=== PATIENT | female | born 1955 | race Caucasian/White ===

== ENCOUNTER 2019-02-27 07:57 | Emergency (ER) | payer OTHER, SELFPAY ==
[2019-02-27 07:59] VITALS: BP 138/79; PULSE 67; RESP 16; TEMP 36.7; O2SAT 99; BMI 30.4
--- NOTE | 2019-02-27 08:18 | EKG12_ITS ---
Test Reason : Blood Pressure : / mmHG Vent. Rate : 062 BPM Atrial Rate : 082 BPM P-R Int : 214 ms QRS Dur : 094 ms QT Int : 418 ms P-R-T Axes : 039 -37 -16 degrees QTc Int : 424 ms Sinus rhythm with 1st degree A-V block with Blocked Premature atrial complexes Left axis deviation Low voltage QRS Nonspecific T wave abnormality Abnormal ECG Old IWMI Confirmed by BENSON LARA ([id number]), acquisitions editor SARIKA ROE ([id number] on 03/03/2019 4:58:40 PM Referred By: MIKAYLA Confirmed By:BENSON LARA
--- NOTE | 2019-02-27 08:18 | CT_ITS ---
STUDY: CT BRAIN WITHOUT CONTRAST REASON FOR EXAM: Female, 63 years old. Confusion. RADIATION DOSAGE (If Supplied By Facility): CTDIvol = ( 60.81 ) mGy, DLP = ( 1044.28 ) mGycm TECHNIQUE: Transaxial CT imaging of the brain was performed without administration of intravenous contrast material. Individualized dose optimization techniques were used for this CT. COMPARISON: Comparison is made with prior study dated May 14, 2017. FINDINGS: Normal soft tissue structures. Normal calvarium. Normal size ventricles and extra-axial spaces for the patient's age. Normal white matter tracts of the cerebral hemispheres. Normal basal ganglia and thalami. Normal brainstem. Normal cerebellum. There is no intracranial hemorrhage. There are no findings of an acute ischemic infarction. Normal visualized paranasal sinuses. CT/Brain/Head without Contrast IMPRESSION: Normal unenhanced CT scan of the brain. Electronically Signed: Tyson Garcias, at 9:13 EDT , Service support ,
--- NOTE | 2019-02-27 08:24 | ED.DCSUM_ITS ---
- ER Visit Summary Date of Service: 02/27/19 Chief Complaint: Confusion History of Present Illness: The patient is a 63 F who presents with an episode of some confusion at work today. Patient states she had difficulty figuring out how to use 1 of the machines at work today. 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 Patient states her coworkers became concerned and called EMS. Patient denies any chest pain or palpitations. Patient denies any headaches. Patient denies any paresthesias or weakness. Physical Examination: Vital signs are stable. Patient is afebrile. Patient is in no acute distress. Oral mucosa is pink and moist. Neck is supple. Trachea is midline. There is no JVD noted. Heart was regular rate and rhythm. Lungs are clear and equal bilateral. Abdomen is soft. Bowel sounds are normal. There is no tenderness. There is no guarding noted. Skin is warm dry. Cranial nerves II through XII are intact. There are no focal motor or sensory deficits noted. The remaining physical exam is within normal limits. Test Results: EKG showed sinus rhythm with a rate of 62 with occasional PACs. There are no acute ST or T wave changes. This was unchanged compared to previous EKG dated 07/15/2015. CT scan of the brain was obtained. There is no acute intracranial abnormality noted. CBC was essentially within normal limits. Basic metabolic profile shows sodium of 130 and a chloride of 97. Urinalysis was normal. Troponin was normal. Emergency Department Course and Treatment: Patient was given IV fluids here. Patient felt better on reevaluation. Patient was instructed to get plenty of rest. Patient was instructed to follow-up with her primary care physician in 5- 7 days. Patient and her spouse understood and were agreeable with the plan. All questions were answered. Disposition: Discharge home Impression: Confusion episode This note was generated with QA on Request dictation software. It may contain incorrect words, spelling, and punctuation that were not noted in review of the chart prior to signing ED Disposition - Plan for ED Patient: Disposition: Home or Assisted Living Diagnosis: Episode of confusion Instructions: ED Confusion Referrals: Yohannes Del Cid MD [NON-STAFF] - 5-7 Days
[2019-02-27 08:39] LABS: Absolute Lymphocyte Count 2.02 X10^3/ul (0.83-4.51); Absolute Neutrophil Count 1.3 X10^3/uL (2.0-7.7); Basophil# 0.03 X10^3/uL; Basophil% 0.7 % (0-1); Eosinophil# 0.18 X10^3/uL; Eosinophils% 4.4 % (0-5); Hematocrit 36.9 % (37-47); Hemoglobin 12.7 g/dl (12.0-15.0); Lymphocyte # 2.02 X10^3/ul (4.0); Lymphocyte % 49.8 % (19-41); Mean Corp Hgb Conc 34.4 g/gl (32-36); Mean Corpuscular Hgb 29.7 pg (27.0-32.0); Mean Corpuscular Volume 86.4 fL (81-99); Mean Platelet Vol. 9.4 fl (6.2-12.0); Monocyte# 0.49 X10^3/uL; Monocyte% 12.1 % (0-10); Neutrophil # 1.33 X10^3/uL (2.7-7.7); Neutrophil % 32.8 % (47-70); Platelet Count 244 K/mm3 (150-450); RBC Distribution Width SD 41.2 fl (35.1-43.9); Red Blood Count 4.27 M/mm3 (4.2-5.4); White Blood Count 4.1 K/mm3 (4.4-11.0)
[2019-02-27 08:45] LABS: POSITIVE COUNT NO; POSITIVE DIFFERENTIAL NO; POSITIVE MORPHOLOGY NO
[2019-02-27 08:56] LABS: AST(SGOT) 26 U/L (15-37); Alanine Aminotransfer ALT/SGPT 28 U/L (13-56); Albumin, Serum 3.3 g/dL (3.2-5.0); Alkaline Phosphatase 145 U/L (45-117); Anion Gap 6 (5-15); BUN 10 mg/dL (7-18); BUN/Creat Ratio 10.4 RATIO (10-20); Calcium,Total 8.5 mg/dL (8.5-10.1); Chloride 97 mmol/L (98-107); Creatinine, Serum 0.96 mg/dL (0.55-1.02); EST Glomerular Filtration Rate 62 mL/min (>60); Est Glom Filt Rate - Afr Amer 75 mL/min (>60); Estimated Creatinine Clearance 48.33 ml/min; Globulin 3.3 g/dL (2.2-4.2); Glucose 103 mg/dL (74-106); Potassium 3.7 mmol/L (3.5-5.1); Protein, Total 6.6 g/dL (6.4-8.2); Sodium Level 130 mmol/L (136-145)
[2019-02-27 09:07] VITALS: BP 104/87; PULSE 72; RESP 19; O2SAT 99
[2019-02-27] MEDS: 0.9% Normal Saline 1,000 ML 1000 ML IV (09:52)
[2019-02-27 10:03] LABS: Bacteria 0 SEEN /hpf (None Seen); Mucous, Urine 0 SEEN /hpf (<or=2+); Red Blood Cells-Urine 0 SEEN /hpf (0-5); White Blood Cells 0 SEEN /hpf (0-5)
[2019-02-27 10:05] LABS: Color, Urine Yellow (Yellow); Glucose, Dipstick Normal (Normal); Ketone-Dipstick Negative (Negative); Leukocyte Esterase-Dipstick Negative /ul (Negative); Nitrite-Dipstick Negative (Negative); Occult Blood-Urine Negative /ul (Negative); Protein-Dipstick Negative (Negative); Urine Bilirubin Dipstick Negative (Negative); Urine Clarity Clear (Clear); Urine Urobilinogen Normal (Normal)
[2019-02-27 10:12] LABS: Squamous Epithelial Cells - UA 0-5 SEEN /hpf (5-10)
[2019-02-27 10:37] VITALS: BP 137/85; PULSE 62; RESP 15; O2SAT 97
== END 2019-02-27 10:37 | disposition home or self-care (01) ==
PROVIDERS: Emergency Provider Emergency Medicine; Family Provider Family Medicine; PCP Family Medicine
DX: R41.0 Disorientation, unspecified (principal); M54.2 Cervicalgia; M54.9 Dorsalgia, unspecified; E78.00 Pure hypercholesterolemia, unspecified; K21.9 Gastro-esophageal reflux disease without esophagitis; E03.9 Hypothyroidism, unspecified
CPT/HCPCS: 70450; 80053; 81001; 84484; 85025; 93005; 96360; 99285; J7030; A4216

== ENCOUNTER 2021-10-20 14:33 | Emergency (ER) | payer OTHER, SELFPAY ==
[2021-10-20 14:34] VITALS: BP 141/96; PULSE 64; RESP 16; TEMP 36.4; O2SAT 97; BMI 35.5
--- NOTE | 2021-10-20 16:56 | US_ITS ---
STUDY: VENOUS DOPPLER ULTRASOUND - LEFT LOWER EXTREMITY REASON FOR EXAM: Female, 65 years old. LEG PAIN AND SWELLING LEFT LATERAL CALF PAIN- X 2 WEEKS TECHNIQUE: Ultrasound evaluation of the deep vein system to include mcintyre-scale imaging and compression was performed. Mcintyre-scale imaging and Doppler sonographic evaluation, including duplex spectral analysis and qualitative color flow sonography, was performed. COMPARISON: None. FINDINGS: Common Femoral Vein: Normal compression, spontaneity and augmentation. Normal color Doppler. Common Femoral Vein/Greater Saphenous Junction: Normal compression, spontaneity and augmentation. Normal color Doppler. Superficial Femoral Proximal: Normal compression, spontaneity and augmentation. Normal color Doppler. Superficial Femoral Middle: Normal compression, spontaneity and augmentation. Normal color Doppler. Superficial Femoral Distal: Normal compression, spontaneity and augmentation. Normal color Doppler. Popliteal Vein: Normal compression, spontaneity and augmentation. Normal color Doppler. Posterior Tibial Vein: Normal compression, spontaneity and augmentation. Normal color Doppler. Peroneal Vein: Normal compression, spontaneity and augmentation. Normal color Doppler. There is no demonstrated deep venous thrombosis. US/Venous Duplex Imag/Limited/Uni IMPRESSION: There is no demonstrated deep venous thrombosis. Please see technologist report in PACS for further details for their impression/ worksheet/ details/ etc. Electronically Signed: Kaushik Robbins MD at 17:41 EST , Service support ,
--- NOTE | 2021-10-20 18:36 | ED.VIS.LOWEX ---
HPI History of Present Illness HPI Narrative: Patient presents with left lower leg pain that has been getting worse over the past 2 weeks. Patient states her pain has gradually gotten worse. Patient denies any trauma or injury. Patient describes her pain as burning. Patient states she went to an urgent care today and was referred to the emergency department for possible DVT. Patient states her pain is worse with any ambulation and better with rest. Patient does admit to some tingling in her left leg. Patient denies any weakness. Chief Complaint: Lower Extremity Injury Informant: patient Onset/Context/Timing Onset: Weeks (2) Timing: Continuous Quality of Pain: Burning Worsened by: Ambulation Relieved by: Rest Associated Symptoms Associated Symptoms: Positive for Parasthesia; Negative for Weakness and Loss of Funtion PFSH PFS Medical History (Updated 10/20/21 @ 18:[address] Parish Jensen DO) Harper's disease Hypothyroidism Home Medications tramadol 50 mg PO Q6H PRN PRN 06/24/15 [History Last Taken 07/14/15] ergocalciferol (vitamin D2) [Vitamin D2] 50,000 unit PO Q7D 07/15/15 [History Last Taken 07/11/15] levothyroxine 75 mcg PO DAILY 07/15/15 [History Last Taken 07/15/15] zolpidem [Ambien] 10 mg PO QHS PRN PRN #1 07/16/15 [Rx Last Taken Unknown] amitriptyline 50 mg PO DAILY 05/14/17 [History Last Taken Unknown] hydrocortisone 5 mg PO 4X/DAY 02/27/19 [History Last Taken Unknown] Allergy/AdvReac Type Severity Reaction Status Date / Time Penicillins AdvReac Mild Other Verified 10/20/21 14:36 Surgical History (Updated 10/20/21 @ 18:[address] Parish Jensen DO) History of carpal tunnel surgery History of hysterectomy Hx of appendectomy Hx of section Hx of cholecystectomy Social History Smoking Status: Never smoker ROS ROS ED Constitutional Constitutional ED: Denies chills or fever(s) Eyes Eyes: Denies blurry vision or change in vision ENT ENT ED: Denies rhinorrhea or sore throat Cardiovascular Cardiovascular: Denies chest pain or palpitations Respiratory/Chest Respiratory/Chest: Denies cough or dyspnea Gastrointestinal Gastrointestinal: Denies nausea or vomiting Genitourinary Genitourinary ED: Denies dysuria or hematuria Musculoskeletal Musculoskeletal: Denies back pain or neck pain Integumentary Denies abscess or rash Neurologic Neurologic: Denies headache(s) or weakness Hematologic/Lymphatic Hematologic/Lymphatic: Reports easy bruising Allergic/Immunologic Allergic/Immunologic ED: Denies mouth swelling or urticaria EXAM Physical Exam Const Vital Signs: 10/20/21 14:34 Temperature 97.5 F L Temperature Source Temporal Pulse Rate 64 Respiratory Rate 16 Blood Pressure 141/96 H Blood Pressure Mean 111 Pulse Ox 97 Oxygen Delivery Method Room Air Positive well nourished, well developed and obese General Appearance ED: well developed Nutritional Appearance: obese HEENT Reports moist mucous membranes normocephalic Extremity Extremity Narrative: There is tenderness over the lateral aspect of the left lower leg. There is mild calf tenderness. There is no bony crepitance or step-off. There is no edema or ecchymosis. There is good range of motion. There is mild pain with dorsiflexion of the left ankle. Pedal pulses are equal bilaterally. Sensation was intact to light touch in all digits. Capillary refill was less than 2 seconds in all digits. Neuro oriented x3, CN's II-XII intact bilaterally, moves all extremities and no sensory deficits noted Sensorium / Orientation: alert Motor Exam: strength 5/5 throughout Psych mental status grossly normal MDM MDM MDM Narrative Medical decision making narrative: Venous duplex of the left lower extremity was obtained. There is no DVT noted. This was interpreted by the radiologist and reviewed by myself. Patient was advised of her findings. Patient was instructed to ice and elevate the left leg. Patient was instructed to take Tylenol or ibuprofen as needed for pain. Patient understood and was agreeable with the plan. All questions were answered. Radiography Diagnostic Testing: Clinical Impression(s) from Imaging Studies Venous Duplex 10/20/21 16:56 IMPRESSION: There is no demonstrated deep venous thrombosis. Please see technologist report in PACS for further details for their impression/ worksheet/ details/ etc. Electronically Signed: Kaushik Robbins MD at 17:41 EST , Service support , Discharge Plan Triage Chief Complaint: Lower Extremity Injury ED Provider: Parish Jensen Dx/Rx/DC Orders Clinical Impression: Strain of left calf muscle Instructions: ED Muscle Strain, Extremity Prescriptions: No Action tramadol 50 MG tablet 50 mg PO Q6H PRN PRN (Reason: Pain) RF: 0 levothyroxine 75 MCG tablet 75 mcg PO DAILY RF: 0 ergocalciferol (vitamin D2) [Vitamin D2] 50,000 UNIT capsule 50,000 unit PO Q7D RF: 0 zolpidem [Ambien] 10 MG tablet 10 mg PO QHS PRN PRN (Reason: Sleep) Qty: 1 RF: 0 amitriptyline 50 MG tablet 50 mg PO DAILY RF: 0 hydrocortisone 5 MG tablet 5 mg PO 4X/DAY RF: 0 Primary Care Provider: Samy Bo Referrals: Samy Bo MD [Primary Care Provider] - 3-5 Days Disposition Disposition: Home, Self Care
== END 2021-10-20 18:46 | disposition home or self-care (01) ==
PROVIDERS: Emergency Provider Emergency Medicine; PCP Family Medicine
DX: S86.912A Strain of unspecified muscle(s) and tendon(s) at lower leg level, left leg, initial encounter (principal); X58.XXXA Exposure to other specified factors, initial encounter; Y93.9 Activity, unspecified; Y92.9 Unspecified place or not applicable; E66.9 Obesity, unspecified; Z68.35 Body mass index [BMI] 35.0-35.9, adult; E27.1 Primary adrenocortical insufficiency; E03.9 Hypothyroidism, unspecified; Z79.899 Other long term (current) drug therapy
CPT/HCPCS: 93971; 99282

== ENCOUNTER 2022-01-04 11:29 | Emergency (ER) | payer OTHER, SELFPAY ==
[2022-01-04 11:30] VITALS: BP 123/78; PULSE 76; RESP 18; TEMP 36.4; O2SAT 98; BMI 34.7
--- NOTE | 2022-01-04 12:25 | RAD_ITS ---
STUDY: X-RAY - RIGHT HAND REASON FOR EXAM: Female, 66 years old. Cat bite. TECHNIQUE: 3 view(s) of the hand. COMPARISON: None. FINDINGS: Normal radiocarpal articulation. Normal distal radioulnar joint. Normal visualized carpal bones. Normal carpal articulations Normal carpometacarpal articulation of the thumb. Normal second through fifth carpometacarpal joints. Normal metacarpi. Normal metacarpophalangeal joint of the thumb. Normal interphalangeal joint of the thumb. Normal proximal and distal phalanges of the thumb. Normal metacarpophalangeal joints of the second through fifth fingers. Normal proximal and distal interphalangeal joints of the second through fifth fingers. Normal phalanges of the second through fifth fingers. Soft tissue swelling. No radiopaque foreign body is seen. RAD/Hand Min 3 Views IMPRESSION: Soft tissue swelling. No radiopaque foreign body is seen. Electronically Signed: Tyson Garcias MD at 12:38 EST ,
[2022-01-04 12:34] LABS: Erythrocyte Sedimentation Rate 48 mm/hr (0-30)
[2022-01-04 12:37] LABS: Absolute Lymphocyte Count 2.97 X10^3/uL (0.83-4.51); Absolute Neutrophil Count 5.2 X10^3/uL (2.0-7.7); Basophil# 0.09 X10^3/uL; Eosinophil# 0.31 X10^3/uL; Eosinophils% 3.3 % (0-5); Hematocrit 38.3 % (37-47); Lymphocyte # 2.97 X10^3/ul (0.83-4.51); Lymphocyte % 31.6 % (19-41); Mean Corp Hgb Conc 33.9 g/dL (32-36); Mean Corpuscular Volume 91.4 fL (81-99); Mean Platelet Vol. 10.1 fl (6.2-12.0); Monocyte# 0.71 X10^3/uL; Monocyte% 7.6 % (0-10); NRBC Flagged by Analyzer 0 % (0-5); Neutrophil # 5.17 X10^3/uL (2.7-7.7); Platelet Count 332 K/mm3 (150-450); RBC Distribution Width CV 13.9 % (11.6-14.6); RBC Distribution Width SD 46.5 fl (35.1-43.9); Red Blood Count 4.19 M/mm3 (4.2-5.4); White Blood Count 9.4 K/mm3 (4.4-11.0)
[2022-01-04 12:42] LABS: ALB/GLOB Ratio 0.9 RATIO (0.9-2.4); AST(SGOT) 24 U/L (15-37); Alanine Aminotransfer ALT/SGPT 31 U/L (13-56); Albumin, Serum 3.5 g/dL (3.2-5.0); Alkaline Phosphatase 106 U/L (45-117); Anion Gap 6 (5-15); BUN 11 mg/dL (7-18); Calcium,Total 8.6 mg/dL (8.5-10.1); Chloride 103 mmol/L (98-107); EST Glomerular Filtration Rate 59 mL/min (>60); Est Glom Filt Rate - Afr Amer 71 mL/min (>60); Estimated Creatinine Clearance 42.59 ml/min; Globulin 3.9 g/dL (2.2-4.2); Glucose 85 mg/dL (74-106); Potassium 3.7 mmol/L (3.5-5.1); Protein, Total 7.4 g/dL (6.4-8.2); Sodium Level 136 mmol/L (136-145)
[2022-01-04 13:58] VITALS: BP 148/85; PULSE 53; RESP 18; TEMP 36.2; O2SAT 98
--- NOTE | 2022-01-04 14:49 | EDS_ITS ---
HPI History of Present Illness Chief Complaint: Bite Informant: patient Narrative Narrative: Presents for evaluation of cat bite cellulitis right upper extremity. Initial cat bite 2 days ago her home cat. Patient's immunizations up-to-date. Tetanus shot was performed couple weeks ago for a cat bite on the left hand. She states saw her PCP started on Augmentin, overnight redness around the site. There is no streaking. No fevers. She is not a diabetic. No immunosuppressant history. Reports had a cat bite to the left hand 10 days ago, she had fever and confusion and she was admitted to [facility] for 2 days, she had incision and drainage and drain tube placed to the left hand that has been removed, and healing. She finished her initial antibiotics Sunday before restarting on Sunday due to new bite. There is no fevers. Prior similar symptoms: Yes PFSH PFSH Medical History Troy's disease Detached retina, right Hypothyroidism Home Medications tramadol 50 mg PO Q6H PRN PRN 06/24/15 [History Last Taken 07/14/15] ergocalciferol (vitamin D2) [Vitamin D2] 50,000 unit PO Q7D 07/15/15 [History Last Taken 07/11/15] levothyroxine 75 mcg PO DAILY 07/15/15 [History Last Taken 07/15/15] zolpidem [Ambien] 10 mg PO QHS PRN PRN #1 07/16/15 [Rx Last Taken Unknown] amitriptyline 50 mg PO DAILY 05/14/17 [History Last Taken Unknown] hydrocortisone 5 mg PO 4X/DAY 02/27/19 [History Last Taken Unknown] Allergy/AdvReac Type Severity Reaction Status Date / Time Penicillins AdvReac Mild Other Verified 01/04/22 11:32 Surgical History History of carpal tunnel surgery History of hysterectomy Hx of appendectomy Hx of section Hx of cholecystectomy Social History Smoking Status: Never smoker ROS ROS ED Constitutional Constitutional ED: Denies chills, fever(s) or sweats Eyes Eyes: Denies change in vision ENT ENT ED: Denies dysphagia or sore throat Cardiovascular Cardiovascular: Denies chest pain, leg edema, palpitations or racing heartbeat Respiratory/Chest Respiratory/Chest: Denies cough, dyspnea or dyspnea on exertion Gastrointestinal Gastrointestinal: Denies abdominal pain, diarrhea, nausea or vomiting Genitourinary Genitourinary ED: Denies dysuria, hematuria or urinary frequency Musculoskeletal Musculoskeletal: Denies back pain, extremity pain or neck pain Integumentary Reports other Details: Cat bite right hand forearm ; Denies rash or wounds Neurologic Neurologic: Denies headache(s), paresthesias or weakness EXAM Physical Exam Const Vital Signs: 01/04/22 11:30 01/04/22 13:58 Temperature 97.6 F L 97.2 F L Temperature Source Temporal Temporal Pulse Rate 76 53 L Respiratory Rate 18 18 Blood Pressure 123/78 H 148/85 H Blood Pressure Mean 93 106 Pulse Ox 98 98 Oxygen Delivery Method Room Air Room Air Positive well nourished and well developed General Appearance ED: well developed and NAD HEENT Reports moist mucous membranes normocephalic and atraumatic Eyes PERRL, EOMs intact bilaterally and conjunctivae normal General Eye ED: Yes normal appearance of both eyes Neck no lymphadenopathy and supple General: Negative for tenderness Chest Wall Chest: Negative for tenderness Resp normal respiratory effort and normal air movement Effort and Inspection: symmetric chest movement; Negative for respiratory distress Cardio regular rate, regular rhythm and no murmurs Peripheral Pulses: pulses 2+ throughout GI normal to inspection, nondistended, normoactive bowel sounds and non-tender Palpation: Negative for guarding or rebound tenderness present Back/Spine no CVA tenderness and no thoracic nor lumbar tenderness Extremity normal to inspection General Extremety ED: Negative for edema or tenderness General Extremity: Negative for edema Neuro oriented x3 and no sensory deficits noted Sensorium / Orientation: awake and alert Skin no rashes or lesions noted and no wounds Skin Narrative: Right upper extremity: Hand noted multiple punctures dorsal aspect there is erythematous patch on the dorsal aspect hand mild swelling there is no crepitus. Also punctures noted on the dorsal mid forearm with minimal erythema around the sites. There is no drainage no induration. No streaking up the arm there is no axillary lymphadenopathy. Areas are nontender to palpation. MDM MDM MDM Narrative Medical decision making narrative: Patient nontoxic vital signs stable afebrile. A&O x3. The erythema was outlined by myself with a marking pen. I did check labs white count normal at 9.4. ESR 48 CRP 16. She was given a dose of Unasyn. X-ray right hand reviewed by myself and read by radiology soft tissue swelling with no soft tissue gas. On reevaluation erythema was slightly improving from the markings. At this time discussed with the patient safe for outpatient treatment will finish her antibiotics and follow-up with her PCP. Discussed return precautions. All questions were answered. Patient is being discharged under pandemic conditions under declared global, national and state disaster activation, with limited medical resources. Patient and community understands this. Results discussed in layman's terms to the patient satisfaction. All questions answered in layman's terms. Patient understands importance of follow-up care as directed. Patient has been instructed to return to the ED immediately if new symptoms, problems, or questions occur. We mutually agree with the plan of disposition. The patient understand that they may call or return with any questions or concerns at any time. Lab Data Attestation: I reviewed the patient's lab results. Labs: Laboratory Results - last 24 hr 01/04/22 01/04/22 12:15 12:15 WBC 9.4 RBC 4.19 L Hgb 13.0 Hct 38.3 MCV 91.4 MCH 31.0 MCHC 33.9 RDW Std Deviation 46.5 H RDW Coeff of Amina 13.9 Plt Count 332 MPV 10.1 Immature Gran % (Auto) 1.500 H Neut % (Auto) 55.0 Lymph % (Auto) 31.6 [place] % (Auto) 7.6 Eos % (Auto) 3.3 Baso % (Auto) 1.0 Absolute Neuts (auto) 5.2 Absolute Lymphs (auto) 2.97 Nucleated RBC % 0 ESR 48 H Sodium 136 Potassium 3.7 Chloride 103 Carbon Dioxide 27.0 Anion Gap 6 BUN 11 Creatinine 1.00 Estim Creat Clear Calc 42.59 Est GFR (MDRD) Af Amer 71 Est GFR (MDRD) Non-Af 59 L BUN/Creatinine Ratio 11.0 Glucose 85 Calcium 8.6 Total Bilirubin 0.20 AST 24 ALT 31 Alkaline Phosphatase 106 C-React Prot Ext Range 16.10 H Total Protein 7.4 Albumin 3.5 Globulin 3.9 Albumin/Globulin Ratio 0.9 Radiography Chest X-Ray - ED: Read by ED Physician and Read by Radiologist Diagnostic Testing: Clinical Impression(s) from Imaging Studies Hand X-Ray 01/04/22 12:25 IMPRESSION: Soft tissue swelling. No radiopaque foreign body is seen. Electronically Signed: Tyson Garcias MD at 12:38 EST , Discharge Plan Triage Chief Complaint: Bite ED Provider: Garett Beach Dx/Rx/DC Orders Clinical Impression: Cellulitis of hand, right, Cat bite of multiple sites of right hand and wrist Instructions: ED Cat Bite, ED Cellulitis Prescriptions: No Action tramadol 50 MG tablet 50 mg PO Q6H PRN PRN (Reason: Pain) RF: 0 levothyroxine 75 MCG tablet 75 mcg PO DAILY RF: 0 ergocalciferol (vitamin D2) [Vitamin D2] 50,000 UNIT capsule 50,000 unit PO Q7D RF: 0 zolpidem [Ambien] 10 MG tablet 10 mg PO QHS PRN PRN (Reason: Sleep) Qty: 1 RF: 0 amitriptyline 50 MG tablet 50 mg PO DAILY RF: 0 hydrocortisone 5 MG tablet 5 mg PO 4X/DAY RF: 0 Primary Care Provider: Samy Bo Referrals: Samy Bo MD [Primary Care Provider] - 3-5 Days Activity Restrictions/Additional Instructions: Laboratory studies stable x-ray soft tissue swelling with no soft tissue gas. Status post Unasyn x1. Finish your Augmentin. Your redness has been outlined. Develop any new symptoms or worsening return to the emergency department. Otherwise follow-up with your doctor. Disposition Disposition: Home, Self Care Discharge Date/Time: 01/04/22 14:52
== END 2022-01-04 14:52 | disposition home or self-care (01) ==
PROVIDERS: Emergency Provider Emergency Medicine; PCP Family Medicine; Visit Provider Emergency Medicine
DX: L03.113 Cellulitis of right upper limb (principal); E27.1 Primary adrenocortical insufficiency; S60.571A Other superficial bite of hand of right hand, initial encounter; S60.871A Other superficial bite of right wrist, initial encounter; W55.01XA Bitten by cat, initial encounter; Y93.9 Activity, unspecified; Y92.9 Unspecified place or not applicable; E03.9 Hypothyroidism, unspecified; H33.21 Serous retinal detachment, right eye; Z79.899 Other long term (current) drug therapy
CPT/HCPCS: 73130; 80053; 85025; 85652; 86140; 87040; 96365; 99284; J7050; A4216; J0295